=== PATIENT | male | born 1960 | race Caucasian/White ===

== ENCOUNTER 2022-05-26 12:29 | Outpatient (CLI) | payer OTHER, SELFPAY ==
--- NOTE | 2022-05-26 13:00 | CRLHL7_ITS ---
For Patients: As a result of the Century Cures Act, medical imaging exams and procedure reports are released immediately into your electronic medical record. You may view this report before your referring provider. If you have questions, please contact your health care provider. INDICATION: Headaches. TECHNIQUE: Multiplanar multisequence noncontrast MR images acquired through the brain. COMPARISON: None. FINDINGS: The ventricles and sulci are within normal limits for patient age. No mass effect or midline shift. Two punctate foci of T2 FLAIR hyperintensity in the supratentorial white matter, nonspecific. No intracranial hemorrhage or pathologic extra-axial fluid collection. No diffusion restriction to suggest acute infarction. The major arterial flow voids of the skullbase are preserved. Thinning of the right ocular lens. The paranasal sinuses are well aerated. Trace bilateral mastoid effusions. IMPRESSION: 1. No acute infarction, mass effect, or intracranial hemorrhage. 2. Two punctate T2 FLAIR hyperintensities in the supratentorial white matter are nonspecific, though typical for sequelae of minimal chronic microvascular ischemic changes or migraine headaches. Dictated by Eddie Cuadra MD @ 05/26/2022 1:58:27 PM (Electronically Signed)
== END 2022-05-26 12:30 | disposition home or self-care (01) ==
PROVIDERS: PCP Physician Assistant Medical; Visit Provider Physician Assistant Medical
DX: G43.909 Migraine, unspecified, not intractable, without status migrainosus (principal); I67.82 Cerebral ischemia
CPT/HCPCS: 70551

== ENCOUNTER 2025-05-13 08:17 | Outpatient (CLI) | payer OTHER, SELFPAY ==
--- NOTE | 2025-05-13 09:21 | P.ANES_ITS ---
Anesthesia Charges Start Date/Time Anesthesia Start Date: 05/13/25 Anesthesia Start Time: 08:44 Stop Date/Time Anesthesia Stop Date: 05/13/25 Anesthesia Stop Time: 09:19 Coding CPT Codes CPT Codes: VLAD LWR INTST NDOK NOS - 78279 ([id number]) P1 - NORMAL HEALTHY PATIENT, QK - STOCKLAYER 2-4 CNCRNT ANES PROC, QX - HEALTH ASSOCIATE SVC W/ MED DIRECTION
--- NOTE | 2025-05-13 09:21 | W.ANESCHARGE ---
Anesthesia Charges Start Date/Time Anesthesia Start Date: 05/13/25 Anesthesia Start Time: 08:44 Stop Date/Time Anesthesia Stop Date: 05/13/25 Anesthesia Stop Time: 09:19 Coding CPT Codes CPT Codes: VLAD LWR INTST NDPR NOS - 95798 ([id number]) P1 - NORMAL HEALTHY PATIENT, QK - SAFETY TECHNICIAN 2-4 CNCRNT ANES PROC, QX - DIRECTOR LEARNING AND DEVELOPMENT SVC W/ MED DIRECTION
--- NOTE | 2025-05-13 09:32 | W.ANESCHARGE ---
Anesthesia Charges Start Date/Time Anesthesia Start Date: 05/13/25 Anesthesia Start Time: 08:44 Stop Date/Time Anesthesia Stop Date: 05/13/25 Anesthesia Stop Time: 09:19 Coding CPT Codes CPT Codes: VLAD LWR INTST NDSC NOS - [id number] ([id number]) QK - FISCAL ACCOUNTANT 2-4 CNCRNT ANES PROC, QX - FULL TIME SVC W/ MED DIRECTION, P1 - NORMAL HEALTHY PATIENT
--- NOTE | 2025-05-13 09:32 | P.ANES_ITS ---
Anesthesia Charges Start Date/Time Anesthesia Start Date: 05/13/25 Anesthesia Start Time: 08:44 Stop Date/Time Anesthesia Stop Date: 05/13/25 Anesthesia Stop Time: 09:19 Coding CPT Codes CPT Codes: VLAD LWR INTST NDSC NOS - 54823 ([id number]) QK - DRY BOX TENDER 2-4 CNCRNT ANES PROC, QX - ROAD MACHINERY INSPECTOR SVC W/ MED DIRECTION, P1 - NORMAL HEALTHY PATIENT
== END 2025-05-13 08:18 | disposition home or self-care (01) ==
LOC: OP CLINIC 08:17
PROVIDERS: Visit Provider Internal Medicine
DX: Z12.11 Encounter for screening for malignant neoplasm of colon (principal); Z80.0 Family history of malignant neoplasm of digestive organs; D12.4 Benign neoplasm of descending colon; D12.5 Benign neoplasm of sigmoid colon
CPT/HCPCS: 00811; 00812; 45385; J2704